=== PATIENT | female | born 1960 | race Caucasian/White ===

== ENCOUNTER 2017-08-05 06:07 | Day surgery (SDC) | payer MEDICAID ==
[2017-08-02 12:27] VITALS: BMI 23.1
[2017-08-05] MEDS ORDERED: Lidocaine 2% Inj (20ml) ONE (06:58)
[2017-08-05] MEDS ORDERED: Phenylephrine 10 mg/ml Inj ONE (06:58)
[2017-08-05 06:59] LABS: BASO # 0.02 K/mm3 (0.0-2.0); BASO % 0.3 % (0.0-3.0); EOS # 0.1 (0.0-0.7); EOS % 1.6 % (1.5-5.0); GRAN # 3.88 (1.4-6.5); GRAN % 51.2 % (50.0-68.0); HEMOGLOBIN 12.1 g/dL (12.0-16.0); MEAN CELL VOLUME 83.7 fl (80.0-105.0); MEAN CORPUSCULAR HEMOGLOBIN 27.3 pg (25.0-35.0); MEAN CORPUSCULAR HGB CONC 32.6 g/dl (31.0-37.0); MEAN PLATELET VOLUME 10.1 fl (7.0-11.0); MONO # 0.5 (0.1-0.6); MONO % 6.9 % (1.0-6.0); RBC 4.43 10^6/uL (3.5-6.1); RED CELL DISTRIBUTION WIDTH 13.4 % (11.5-14.5); WHITE BLOOD COUNT 7.6 10^3/ul (4.5-11.0)
[2017-08-05] MEDS ORDERED: Iodixanol 320 MG/ML 100 ML BOTTLE IV ONE (06:59)
[2017-08-05] MEDS ORDERED: Iodixanol 320 MG/ML 200 ML BOTTLE IV ONE (06:59)
[2017-08-05] MEDS ORDERED: HEPARIN SODIUM/NS 2,000 ML IV ONE (06:59)
[2017-08-05] MEDS ORDERED: Midazolam 2 MG/2 ML VIAL ONE ×4 (06:59→08:31)
[2017-08-05] MEDS ORDERED: Nitroglycerin 50mg in D5W 0 MG/0 ML BOTTLE IV ONE (06:59)
[2017-08-05] MEDS ORDERED: Iohexol 350mgl/ml 50 ML ONE (06:59)
[2017-08-05 07:07] LABS: BLOOD UREA NITROGEN 18 mg/dL (7-21); CALCIUM 9.5 mg/dL (8.4-10.5); GFR AFRICAN-AMERICAN > 60; GFR NON-AFRICAN AMERICAN > 60
[2017-08-05 07:16] LABS: INR 1.03 (0.93-1.08); PARTIAL THROMBOPLASTIN TIME 26.5 Seconds (25.1-36.5); PROTHROMBIN TIME 11.9 SECONDS (9.4-12.5)
[2017-08-05] MEDS ORDERED: Potassium Chloride 20 mEq ER Tab PO ONE ×2 (07:32→09:58)
[2017-08-05] MEDS ORDERED: Sodium Chloride 0.9% 1,000 ML IV SCH (09:30)
--- NOTE | 2017-08-05 09:59 | CARD ---
APPROVED REPORT EKG Measurement Heart [id number] [place] 190P12 [id number] <Conclusion> Sinus bradycardia Nonspecific ST and T wave abnormality
--- NOTE | 2017-08-05 12:36 | CARD ---
APPROVED REPORT EKG Measurement Heart [id number] [place] 192P7 [id number] <Conclusion> Sinus bradycardia Nonspecific ST- T wave abnormality Abnormal ECG
--- NOTE | 2017-08-05 13:13 | CARDCATH ---
PROCEDURE DATE: 08/05/2017 CARDIOLOGY CONSULTATION AND PTCA HISTORY: The patient is a 57-year-old woman who presents with angina and an abnormal stress test. She is status post coronary artery bypass surgery. She suffers from diabetes mellitus, hypertension and hypercholesterolemia. Because of this, cardiac catheterization was recommended. PROCEDURE: Left heart catheterization with coronary arteriography, left ventriculogram, GASTELUM angiogram, saphenous vein graft angiogram followed by PTCA and stent of the circumflex artery with a drug-eluting stent. The right femoral artery was cannulated with 6-Wolof sheath. There were no complications. I performed moderate sedation, which included the presence of an independent trained observer that assisted in monitoring the patient's level of consciousness and physiologic status. After administration of Versed and fentanyl, my intra service time was 30 minutes. The findings on catheterization revealed a left ventricle that contracted normally. Estimated ejection fraction is 55-60%. Her coronary anatomy revealed a right dominant circulation. The RCA revealed multiple long stents placed in the proximal portion into the border of the distal portion. In the proximal portion of the RCA, there was a 60-70% in-stent restenosis noted. The left main artery was unremarkable. The LAD is subtotally occluded in its proximal portion. The circumflex artery in the AV groove branch revealed a 99% stenoses. The first obtuse marginal branch was occluded. The GASTELUM to the LAD was found to be patent and provided good antegrade flow to the mid and distal LAD. The saphenous vein graft to the obtuse marginal branch was found to be patent and provided good antegrade flow to the obtuse marginal branch. The patient was started on intravenous Angiomax on the fluoroscopic guide, the guiding catheter was placed in the ostium of the left main artery. An 0.014 ATW wire was used to cross the critical lesion in the circumflex artery. This is followed by dilatation with a 2.0 balloon in the midcircumflex artery at 9 atmospheres of pressure. After balloon deflation and removal, a 2.25 x 12 mm drug-eluting stent was placed and deployed in the critical lesion at 11 atmospheres of pressure. After balloon deflation and removal, repeat coronary arteriography revealed an excellent result with no residual stenosis and JOSE L III flow. Angio-Seal was used to close the femoral artery site. The patient tolerated the procedure well. In summary, the procedure was successful for PTCA and stent of 99% stenoses of the midcircumflex artery. A drug-eluting stent was utilized. Cardiac catheterization reveals in-stent restenosis of 60-70% of the proximal RCA. The circumflex artery lesion as mentioned above. Triple-vessel CAD. Patent GASTELUM to the LAD. Patent saphenous vein graft to the obtuse marginal branch. Normal LV function. Given these findings, the patient will need to remain on aspirin indefinitely and Plavix for at least a year. We will bring her back in a couple weeks for PTCA and stent of the RCA. Cooper Chu MD
--- NOTE | 2017-08-05 21:50 | HP ---
HISTORY OF PRESENT ILLNESS: Dr. Chu asked me to put her on my service. He just did a cardiac cath with stent placement. She is lying comfortably in bed. No acute distress at this time. Family is present. This is a 57-year-old female who complains of mild chest pain, discomfort. She was set up for a cardiac cath with Dr. Chu today; stent was placed. She has chest tightness at times with shortness of breath when she walks up a flight of stairs. She has a history of hypothyroid, diabetes, hyperlipidemia, hypertension, triple-vessel disease, CAD. She had left foot spur surgery. Last menstrual period was 2 to 3 years ago. No alcohol. No smoking. No drugs. There is a CABG history, swelling of both feet. She wears glasses. She is alert and oriented x3. Not depressed. Not anxious. She is lying flat. She knows she has to lie flat at this time. ALLERGIES: SHE HAS NO KNOWN DRUG ALLERGIES. REVIEW OF SYSTEMS: She had shortness of breath. She walks too much and chest pain with walking a flight of stairs. No acute vision or hearing changes. No sore throat. No abdominal pain, nausea, vomiting, constipation, or diarrhea. No skin issues . Not anxious. Gets shortness of breath at times. PHYSICAL EXAMINATION: VITAL SIGNS: She had a 98.5 temp; 87 pulse; 163/100 blood pressure, I put her back on her Norvasc; 18 respiratory rate; and 99%O2 sat on room air. HEENT: Head is atraumatic, normocephalic. HEART: Regular rate. LUNGS: Decreased breath sounds, but clear. ABDOMEN: Soft. Nontender. EXTREMITIES: No edema. GCS is 15. Cranial nerves II through XII grossly intact. SKIN: Right intact. She has got a bandage over the right groin. LABORATORY DATA: She has a 142 sodium; potassium 3.5, I will get her some potassium; BUN 18, creatinine 0.6. GFR is greater than 60. Sugar is 116, calcium is 9.5. INR is 1.03. She has a 7.6 white count, 12.1 hemoglobin, 37.1 hematocrit with a 310 platelets. ASSESSMENT AND PLAN: Should be lying flat for the next 6 hours. She has IV fluids, Plavix. I added Norvasc, Lopressor, Lipitor if blood pressure is so high. She will be fed tonight, watched overnight. If she does well, she will be discharged tomorrow. We will check her labs tomorrow. I gave her one potassium now and she is here for coronary artery disease, stent placement. Armando Cramer DO MTDD
[2017-08-06 06:28] VITALS: TEMP 98.8
[2017-08-06 06:42] LABS: BASO # 0.03 K/mm3 (0.0-2.0); BASO % 0.4 % (0.0-3.0); EOS # 0.1 (0.0-0.7); EOS % 1.6 % (1.5-5.0); GRAN # 4.56 (1.4-6.5); GRAN % 57.5 % (50.0-68.0); HEMOGLOBIN 12.1 g/dL (12.0-16.0); LYMPH # 2.7 (1.2-3.4); LYMPH % 33.9 % (22.0-35.0); MEAN CELL VOLUME 84.1 fl (80.0-105.0); MEAN CORPUSCULAR HEMOGLOBIN 27.1 pg (25.0-35.0); MEAN CORPUSCULAR HGB CONC 32.3 g/dl (31.0-37.0); MONO # 0.5 (0.1-0.6); MONO % 6.6 % (1.0-6.0); RBC 4.46 10^6/uL (3.5-6.1); RED CELL DISTRIBUTION WIDTH 13.7 % (11.5-14.5); WHITE BLOOD COUNT 7.9 10^3/ul (4.5-11.0)
[2017-08-06 06:47] LABS: ALB/GLOB RATIO 1.3 (1.1-1.8); ALBUMIN 3.9 g/dL (3.0-4.8); ALT/SGPT 25 U/L (7-56); AST/SGOT 28 U/L (14-36); BLOOD UREA NITROGEN 16 mg/dL (7-21); CALCIUM 9.2 mg/dL (8.4-10.5); GFR AFRICAN-AMERICAN > 60; GFR NON-AFRICAN AMERICAN > 60
[2017-08-06 08:21] VITALS: O2SAT 99
--- NOTE | 2017-08-06 09:45 | CARD ---
APPROVED REPORT EKG Measurement Heart [id number] [place] 164P51 [id number] <Conclusion> Sinus bradycardia Nonspecific ST and T wave abnormality Abnormal ECG
[2017-08-06 09:56] VITALS: BP 141/74; PULSE 65
--- NOTE | 2017-08-06 10:24 | DS ---
HISTORY OF PRESENT ILLNESS: I saw her resting comfortably in bed. She has no chest pain. No shortness of breath. No abdominal pain. She is walking to the bathroom. The legs feel well. She is eating. Good spirits. She will be discharged today after Dr. Chu sees her. PHYSICAL EXAMINATION: VITAL SIGNS: She has a 98.8 temp, 69 pulse, 152/82 blood pressure, 20 respiratory rate, 98% O2 sat on room air. HEENT: Head is atraumatic, normocephalic. Throat is moist. NECK: Supple. HEART: Regular rate. LUNGS: Clear to auscultation. ABDOMEN: Soft. EXTREMITIES: No edema. MEDICATIONS: She is currently on Ecotrin, Lipitor, Lopressor, Norvasc, Plavix. She will also take her regular medication, metformin and Pepcid. LABORATORY DATA: She has a 140 sodium, potassium 3.7, BUN 16, creatinine 0.6, GFR is greater than 60, sugar is 126, calcium is 9.2, total bili is 0.4, AST is 28, ALT is 25, alk phos 66, total protein 6.9. She has a 7.9 white count, 12.1 hemoglobin, 37.5 hematocrit with a 306 platelets. ASSESSMENT AND PLAN: She was here for coronary artery disease, cardiac catheterization, stent placement. She will be followed up in the outpatient with the primary care and Dr. Chu. She will eat a very low-cholesterol, low-salt healthy diet. She will go for some walking and exercise. Armando Cramer DO
--- NOTE | 2017-08-06 11:05 | PN ---
DATE: 08/06/2017 CARDIOLOGY FOLLOWUP SUBJECTIVE: The patient is chest pain free. No shortness of breath. No chest pain. PHYSICAL EXAMINATION: VITAL SIGNS: Blood pressure is 141/74 with the heart rates in the 60s. NECK: Negative JVD. LUNGS: Without rales. HEART: With S1, S2. EXTREMITIES: Without edema. LABORATORY DATA: Hemoglobin is 12.1. Chemistries: BUN and creatinine are unremarkable. The glucose is 124. IMPRESSION: 1. Stable post Percutaneous transluminal coronary angioplasty and stent of the circumflex artery. 2. Status post coronary artery bypass surgery. 3. Triple-vessel coronary artery disease. 4. Diabetes mellitus. 5. Hypercholesterolemia. PLAN: Given these findings, the patient is stable for discharge. Instructions have been given to the patient in detail. She will follow up with me in the office in 3-4 weeks. We will bring her back after the visit for PTCA and stent of the RCA. Cooper Chu MD
[2017-08-06 11:31] VITALS: RESP 18
== END 2017-08-06 12:58 | disposition home or self-care (01) ==
LOC: CATH 06:07 → 2RNO 09:42 → CATH 08-06 12:58
PROVIDERS: ATTEND Family Medicine
DX: I25.119 Atherosclerotic heart disease of native coronary artery with unspecified angina pectoris (principal); T82.857A Stenosis of other cardiac prosthetic devices, implants and grafts, initial encounter; E03.9 Hypothyroidism, unspecified; E11.9 Type 2 diabetes mellitus without complications; E78.00 Pure hypercholesterolemia, unspecified; E78.5 Hyperlipidemia, unspecified; I10 Essential (primary) hypertension; Z79.02 Long term (current) use of antithrombotics/antiplatelets; Z79.82 Long term (current) use of aspirin; Z79.84 Long term (current) use of oral hypoglycemic drugs; Z95.1 Presence of aortocoronary bypass graft; Z95.5 Presence of coronary angioplasty implant and graft; R40.2413 Glasgow coma scale score 13-15, at hospital admission; R94.39 Abnormal result of other cardiovascular function study
CPT/HCPCS: 36415; 80048; 85025; 85610; 85730; 86850; 86900; 93005; 93459; 99152; 99153; C1725; C1760; C1769 ×2; C1874; C1887 ×2; C1894; C2629; J0583; J1644; J2250; J3010; J7030; J7040; Q9967

== ENCOUNTER 2017-08-26 06:33 | Day surgery (SDC) | payer MEDICAID ==
[2017-08-02 12:27] VITALS: BMI 23.1
[2017-08-26] MEDS ORDERED: Lidocaine 2% Inj (20ml) ONE (07:04)
[2017-08-26] MEDS ORDERED: Phenylephrine 10 mg/ml Inj ONE (07:04)
[2017-08-26] MEDS ORDERED: Iohexol 350mgl/ml 50 ML ONE (07:05)
[2017-08-26] MEDS ORDERED: Iodixanol 320 MG/ML 100 ML BOTTLE IV ONE (07:06)
[2017-08-26] MEDS ORDERED: HEPARIN SODIUM/NS 2,000 ML IV ONE (07:06)
[2017-08-26] MEDS ORDERED: Iodixanol 320 MG/ML 200 ML BOTTLE IV ONE (07:06)
[2017-08-26] MEDS ORDERED: Nitroglycerin 50mg in D5W 0 MG/0 ML BOTTLE IV ONE (07:07)
[2017-08-26 07:21] LABS: BASO # 0.04 K/mm3 (0.0-2.0); BASO % 0.6 % (0.0-3.0); EOS # 0.3 (0.0-0.7); EOS % 4.3 % (1.5-5.0); GRAN # 3.17 (1.4-6.5); GRAN % 45.1 % (50.0-68.0); HEMOGLOBIN 11.6 g/dL (12.0-16.0); LYMPH # 3.1 (1.2-3.4); LYMPH % 43.6 % (22.0-35.0); MEAN CELL VOLUME 82.8 fl (80.0-105.0); MEAN CORPUSCULAR HEMOGLOBIN 26.9 pg (25.0-35.0); MEAN CORPUSCULAR HGB CONC 32.5 g/dl (31.0-37.0); MEAN PLATELET VOLUME 9.5 fl (7.0-11.0); MONO # 0.5 (0.1-0.6); MONO % 6.4 % (1.0-6.0); RBC 4.31 10^6/uL (3.5-6.1); RED CELL DISTRIBUTION WIDTH 13.5 % (11.5-14.5)
[2017-08-26 07:33] LABS: BLOOD UREA NITROGEN 13 mg/dL (7-21); CALCIUM 9.4 mg/dL (8.4-10.5); GFR AFRICAN-AMERICAN > 60; GFR NON-AFRICAN AMERICAN > 60; HDL CHOLESTEROL 48 mg/dL (29-60)
[2017-08-26 07:35] LABS: INR 0.97 (0.93-1.08); PARTIAL THROMBOPLASTIN TIME 24.8 Seconds (25.1-36.5); PROTHROMBIN TIME 11.2 SECONDS (9.4-12.5)
[2017-08-26 07:45] LABS: LDL CHOLESTEROL 57 mg/dL (0-129)
[2017-08-26] MEDS ORDERED: Midazolam 2 MG/2 ML VIAL ONE ×2 (07:57→08:06)
--- NOTE | 2017-08-26 10:28 | CARD ---
APPROVED REPORT EKG Measurement Heart [id number] [place] 198P8 [id number] <Conclusion> Marked sinus bradycardia Nonspecific T wave abnormality Abnormal ECG
[2017-08-26] MEDS: Sodium Chloride 0.9% 1,000 ML IV SCH ×2 (11:46→21:25)
[2017-08-26] MEDS: Metoprolol Succinate 50 mg XL Tab PO SCH (11:46)
--- NOTE | 2017-08-26 12:52 | CARDCATH ---
PROCEDURE DATE: 08/26/2017 CARDIAC CATHETERIZATION AND PTCA HISTORY: The patient is a 57-year-old woman with a history of coronary artery bypass surgery, multiple stents in the past as well as diabetes mellitus and hypertension and hypercholesterolemia, who presents with exertional angina. The patient underwent PTCA and stent of a subtotally occluded circumflex artery 3-4 weeks ago. She presents for PTCA and stent of an RCA. PROCEDURE: The left femoral artery was cannulated with a 6-Kinyarwanda sheath. There were no complications. I performed moderate sedation which included the presence of an independent trained observer that assisted in monitoring the patient's level of consciousness and physiologic status. After administration of Versed and fentanyl, my intra-service time was 30 minutes. The findings on catheterization revealed a patent stent in the circumflex artery that was placed 3-4 weeks ago. There is critical disease in the diagonal vessel as well as at the first septal manager room which is protected by GASTELUM to the LAD. The RCA was a dominant vessel and revealed a 70%-80% stenosis in its proximal portion. The patient was started on intravenous Angiomax on the fluoroscopic guide, the guiding catheter was placed in the ostium of the RCA. A guide liner was used for better support. A 2.5 balloon was utilized to predilate the lesion. A 3.5 x 12 mm drug-eluting stent was deployed at 17 atmospheres of pressure. Postdilatation was performed with a 4.0 x 8 mm noncompliant balloon at 14 atmospheres of pressure. Repeat coronary arteriography revealed an excellent result with no residual stenosis and JOSE L III flow. Angio-Seal was used to close the left femoral artery site. The patient tolerated the procedure well. In summary, the procedure was successful of PTCA and stent of a critically stenosed proximal RCA stenoses. Drug-eluting stents were utilized. Cardiac catheterization reveals patent stents in the circumflex artery that was placed last month as well as her critical lesion in the diagonal and proximal LAD which is protected by GASTELUM. Given these findings, I have discussed with the patient and family about her need to continue Plavix for a year and undergo a strict cardiac risk reduction program. Cooper Chu MD [facility] # [id number]
--- NOTE | 2017-08-26 15:12 | HP ---
HISTORY OF PRESENT ILLNESS: I was called by Dr. Chu to take a look at her, put her on my service because she just had a cardiac cath and stent placement and she will be kept overnight. She is resting comfortably in bed right now. I saw her in the second floor. She was here a little while ago. Also had a cardiac cath and stent. This is a followup. PAST MEDICAL HISTORY: She has a past medical history of CAD, thyroid disease, diabetes, high cholesterol, hypertension, triple-vessel disease. She had left foot spur surgery; CABG x3 vessels 9 years ago; PTCAs and stents x4, last one was on 08/05/2017. She is alert and oriented x3. ALLERGIES: SHE HAS NO KNOWN DRUG ALLERGIES. MEDICATIONS: Ecotrin, Lipitor, Plavix, Toprol. REVIEW OF SYSTEMS: No acute vision or hearing changes. No sore throat. No neck pain. No chest pain. No shortness of breath. No abdominal pain. The extremities are okay at this time. Skin is okay. No anxiety. No depression. PHYSICAL EXAMINATION: VITAL SIGNS: 98.2 temp, 51 pulse, 148/71 blood pressure, 20 respiratory rate, 100% O2 sat on room air. HEENT: Head is atraumatic, normocephalic. Throat is moist. NECK: Supple. HEART: Regular rate. LUNGS: Decreased breath sounds, but clear. ABDOMEN: Soft, nontender. Positive bowel sounds. EXTREMITIES: Have no edema at this time. LABORATORY DATA: She has a 143 sodium, potassium 4.2, BUN 13, creatinine 0.5, GFR is greater than 60, sugar is 111, calcium is 9.4, triglycerides are 67, cholesterol is 125. INR is 0.97. She has a 7 white count, 11.6 hemoglobin, 35.7 hematocrit with 297 platelets. IMPRESSION AND PLAN: She will be watched overnight. She is going to lay flat for 6 hours. We are going to check her labs tomorrow. She will continue with the medications and she is here for coronary artery disease, catheterization and stent placement, also high cholesterol, hypertension, hypothyroidism and diabetes. Armando Cramer DO [facility] # [id number]
--- NOTE | 2017-08-26 15:54 | CARD ---
APPROVED REPORT EKG Measurement Heart [id number] [place] 200P14 [id number] <Conclusion> Marked sinus bradycardia Nonspecific ST and T wave abnormality Abnormal ECG
[2017-08-27 05:51] VITALS: O2SAT 100
[2017-08-27 06:24] LABS: BASO # 0.02 K/mm3 (0.0-2.0); BASO % 0.3 % (0.0-3.0); EOS # 0.2 (0.0-0.7); EOS % 3.2 % (1.5-5.0); GRAN # 4.15 (1.4-6.5); HEMOGLOBIN 11.8 g/dL (12.0-16.0); LYMPH # 2.6 (1.2-3.4); LYMPH % 35.2 % (22.0-35.0); MEAN CORPUSCULAR HEMOGLOBIN 27.1 pg (25.0-35.0); MEAN CORPUSCULAR HGB CONC 32.7 g/dl (31.0-37.0); MEAN PLATELET VOLUME 9.7 fl (7.0-11.0); MONO # 0.4 (0.1-0.6); MONO % 5.3 % (1.0-6.0); RBC 4.35 10^6/uL (3.5-6.1); RED CELL DISTRIBUTION WIDTH 13.4 % (11.5-14.5); WHITE BLOOD COUNT 7.4 10^3/ul (4.5-11.0)
[2017-08-27 07:25] LABS: ALB/GLOB RATIO 1.3 (1.1-1.8); ALBUMIN 3.9 g/dL (3.0-4.8); ALT/SGPT 24 U/L (7-56); AST/SGOT 31 U/L (14-36); BLOOD UREA NITROGEN 9 mg/dL (7-21); CALCIUM 9.3 mg/dL (8.4-10.5); GFR AFRICAN-AMERICAN > 60; GFR NON-AFRICAN AMERICAN > 60
[2017-08-27] MEDS: Metoprolol Succinate 50 mg XL Tab PO SCH (08:14)
--- NOTE | 2017-08-27 12:31 | PN ---
DATE: 08/27/2017 CARDIOLOGY FOLLOWUP SUBJECTIVE: The patient is ambulating without symptoms. PHYSICAL EXAMINATION: VITAL SIGNS: Blood pressure is 142/78 with the heart rates in the 60s. NECK: Negative JVD. LUNGS: Without rales. HEART: Reveals S1, S2. EXTREMITIES: Without edema. The left groin site is stable. LABORATORY DATA: Hemoglobin is 11.8. Chemistries: BUN and creatinine are unremarkable. IMPRESSION: 1. Stable post percutaneous transluminal coronary angioplasty and stent. 2. Multivessel coronary artery disease with multivessel percutaneous transluminal coronary angioplasty and stent. 3. Diabetes mellitus. 4. Hypercholesterolemia. PLAN: Given these findings, the patient is stable for discharge. Followup and instructions have been given to the patient. Medications were reviewed. Cooper Chu MD
[2017-08-27 13:31] VITALS: BP 121/67; PULSE 52; RESP 18; TEMP 99.3
--- NOTE | 2017-08-27 15:43 | CARD ---
APPROVED REPORT EKG Measurement Heart [id number] [place] 194P15 [id number] <Conclusion> Marked sinus bradycardia Nonspecific ST and T wave abnormality Q in 3, Small Q in AVF.
--- NOTE | 2017-08-28 00:53 | DS ---
HISTORY OF PRESENT ILLNESS: She is going home today. She had a cardiac cath and stent placement by Dr. Chu yesterday. She is comfortable this morning. She slept well. No chest pain, shortness of breath or abdominal pain. She is walking to the bathroom. She is eating. She is on Ecotrin, Lipitor, Plavix and Toprol. Those will be the same medications she will be on. PHYSICAL EXAMINATION: VITAL SIGNS: She has 97.8 temperature, 62 pulse, 142/70 blood pressure, 20 respiratory rate, 100% of O2 sat on room air. HEENT: Head is atraumatic, normocephalic. HEART: Regular rate. LUNGS: Clear to auscultation. ABDOMEN: Soft. EXTREMITIES: No edema. LABORATORY DATA: She has 7.4 white count, 11.8 hemoglobin, 36.1 hematocrit with 205 platelets. She has 142 sodium, potassium 3.7, BUN 9, creatinine 0.5, GFR is greater than 60, sugar is 112, calcium 9.3, total bilirubin is 0.4. AST is 31, ALT is 24, alk phos 50, total protein 6.9, cholesterol is 125. PLAN: She will be seen in the outpatient with Dr. Chu and follow up with her primary care physician. She will be discharged after Dr. Chu sees her this morning. She is here for CAD, status post cardiac cath and stent placement. Armando Cramer DO
== END 2017-08-27 13:53 | disposition home or self-care (01) ==
LOC: CATH 06:33 → 2RNO 09:21 → CATH 08-27 13:53
PROVIDERS: ATTEND Family Medicine
DX: I25.10 Atherosclerotic heart disease of native coronary artery without angina pectoris (principal); I10 Essential (primary) hypertension; E78.00 Pure hypercholesterolemia, unspecified; E11.9 Type 2 diabetes mellitus without complications; E03.9 Hypothyroidism, unspecified; Z79.82 Long term (current) use of aspirin; Z95.1 Presence of aortocoronary bypass graft; Z95.5 Presence of coronary angioplasty implant and graft
CPT/HCPCS: 36415; 80048; 80061; 85025; 85610; 85730; 86850; 86900; 93005; 93454; 99152; 99153; C1725 ×2; C1760; C1769 ×2; C1874; C1887 ×2; C2629; C9600; J0583; J1644; J2250; J3010; J7030; J7040; Q9966; Q9967

== ENCOUNTER 2018-10-06 06:15 | Outpatient (CLI) | payer MEDICAID | END 2018-10-06 06:16 | disposition home or self-care (01) | LOC: CARDIO 06:15 | DX: I25.10 Atherosclerotic heart disease of native coronary artery without angina pectoris (principal) ==

== ENCOUNTER 2018-10-13 07:27 | Day surgery (SDC) | payer MEDICAID ==
[2018-10-12 13:08] VITALS: BMI 22.4
[2018-10-13 08:43] LABS: BASO # 0.03 K/mm3 (0.0-2.0); BASO % 0.4 % (0.0-3.0); EOS # 0.2 (0.0-0.7); EOS % 2.1 % (1.5-5.0); HEMOGLOBIN 11.6 g/dL (12.0-16.0); LYMPH # 3.3 (1.2-3.4); LYMPH % 46.9 % (22.0-35.0); MEAN CELL VOLUME 82.4 fl (80.0-105.0); MEAN CORPUSCULAR HEMOGLOBIN 26.5 pg (25.0-35.0); MEAN CORPUSCULAR HGB CONC 32.2 g/dl (31.0-37.0); MONO # 0.5 (0.1-0.6); MONO % 6.4 % (1.0-6.0); RBC 4.37 10^6/uL (3.5-6.1); RED CELL DISTRIBUTION WIDTH 13.7 % (11.5-14.5)
[2018-10-13 08:44] LABS: BLOOD UREA NITROGEN 11 mg/dL (7-21); GFR NON-AFRICAN AMERICAN > 60; HDL CHOLESTEROL 56 mg/dL (29-60)
[2018-10-13 08:47] LABS: INR 1.04; PARTIAL THROMBOPLASTIN TIME 30.6 Seconds (26.9-38.3); PROTHROMBIN TIME 11.8 SECONDS (9.4-12.5)
[2018-10-13 08:55] LABS: LDL CHOLESTEROL 73 mg/dL (0-129)
[2018-10-13] MEDS ORDERED: Iodixanol 320 MG/ML 100 ML BOTTLE IV ONE (08:55)
[2018-10-13] MEDS ORDERED: Lidocaine PF 2% (5 ml) Inj (For Cardiac Arrhy) ONE (08:55)
[2018-10-13] MEDS ORDERED: Iohexol 350mgl/ml 50 ML ONE (08:55)
[2018-10-13] MEDS ORDERED: Nitroglycerin 50mg in D5W 0 MG/0 ML BOTTLE IV ONE (08:56)
[2018-10-13] MEDS ORDERED: Iodixanol 320 MG/ML 200 ML BOTTLE IV ONE (08:56)
[2018-10-13] MEDS ORDERED: Midazolam 2 MG/2 ML VIAL ONE ×2 (09:28→09:35)
[2018-10-13] MEDS ORDERED: Sodium Chloride 0.9% 1,000 ML IV SCH (10:15)
--- NOTE | 2018-10-13 10:49 | CARD ---
APPROVED REPORT Date of service: 10/13/2018 EKG Measurement Heart [id number] [place] 192P-16 [id number] <Conclusion> Sinus bradycardia Cannot rule out Anterior infarct, age undetermined. Possible lead misplacement V2, V3 Abnormal ECG
--- NOTE | 2018-10-13 12:21 | CARD ---
APPROVED REPORT Date of service: 10/13/2018 EKG Measurement Heart [id number] [place] 192P28 [id number] <Conclusion> Sinus bradycardia Nonspecific ST and T wave abnormality Abnormal ECG
--- NOTE | 2018-10-13 14:31 | CARDCATH ---
PROCEDURE DATE: 10/13/2018 HISTORY: The patient is a 58-year-old woman who is status post coronary artery bypass surgeries, status post multivessel PTCA and stent with a history of diabetes mellitus, hypertension and hypercholesterolemia with aggressive atherosclerosis, who presents with atypical chest pain with a positive stress test. Because of her aggressive nature of her atherosclerosis, a repeat catheterization was recommended. PROCEDURE: Left heart catheterization with coronary arteriography, left ventriculogram, supra-aortic valvular injection, left internal mammary artery angiogram as well as saphenous vein graft angiogram followed by percutaneous transluminal coronary angioplasty and stent of the circumflex artery. DESCRIPTION OF PROCEDURE: The right femoral artery was cannulated with a 6-Zambian sheath. There were no complications. I performed moderate sedation, which included the presence of an independent trained observer that assisted in monitoring the patient's level of consciousness and physiologic status. After administration of Versed and fentanyl, my intra service time was 45 minutes. The findings on catheterization revealed a left ventricle that contracted normally. Supra-aortic valvular injection revealed no aortic insufficiency. The ejection fraction was 60%. Her coronary anatomy revealed a left main artery that was unremarkable. The LAD was subtotally occluded in its proximal portion. The circumflex artery revealed a patent stent, was subtotally occluded in its proximal portion of the obtuse marginal branch. There is eccentric 80% stenoses in the mid circumflex artery in the AV groove branch after the takeoff of the obtuse marginal branch. The RCA revealed multiple patent stents that were placed approximately a year ago. The GASTELUM to the LAD was found to be patent and provided good antegrade flow to the mid and distal LAD. The saphenous vein graft to the obtuse marginal branch was found to be patent and provided good antegrade flow. The patient was started on intravenous Angiomax on the fluoroscopic guide, the guiding catheter was placed in the ostium of the left main artery and 0.014 ATW wire was used to cross the markedly tortuous mid circumflex artery past critical lesion. A 2.5 balloon was utilized to dilate the lesion. After balloon deflation removal, the results were excellent with no residual stenoses and JOSE L-III flow. No stents were attempted given the marked angulation of the circumflex artery lesion. The results of balloon angioplasty were excellent. AngioSeal was used to close the femoral artery site. The patient tolerated the procedure well. In summary, the procedure was successful PTCA of the of the mid circumflex artery with an acute angle after the obtuse marginal branch with excellent results. Cardiac catheterization reveals triple-vessel CAD. Patent GASTELUM to the LAD. Patent SVG to the obtuse marginal branch. Patent stents in the RCA that were placed a year ago. Normal LV function with EF 60%. Given these findings, the patient will need to continue her cardiac risk reduction program and remain on aspirin indefinitely. Cooper Chu MD
[2018-10-13 17:01] VITALS: RESP 20
--- NOTE | 2018-10-14 01:22 | HP ---
DATE OF EXAM: 10/13/2018 HISTORY OF PRESENT ILLNESS: I was called by Dr. Cooper Chu to do a history and physical on her. He had seen her in the past and set her up for cardiac cath. She had chest pain at three different times over the past month with shortness of breath with activity and she came in for a cardiac catheterization, I believe she had a stent placed. PAST MEDICAL HISTORY: She has a past medical history of diabetes, thyroid, coronary artery disease, hyperlipidemia, hypertension, triple-vessel cardiac disease in the past, left foot spur surgery, CABG x3 vessels 13 years ago, PTCA's and stents in the past x5 ever since 08/26/2017. Last menstrual period was 3 to 4 years ago. She is menopausal. SOCIAL HISTORY: A no smoker. No drinking. No drugs. REVIEW OF SYSTEMS: History of coronary artery disease with open heart surgery three vessels. She wears glasses. No anxiety and depression. No changes in vision. No changes in hearing. No sore throat. She did have chest pain and also shortness of breath with activity. No nausea, vomiting, constipation, or diarrhea. No extremity issues. PHYSICAL EXAMINATION VITAL SIGNS: She had a temperature of 97.5, 52 pulse, 18 respiratory rate, a 100% O2 sat, and 131/74 blood pressure. HEENT: Her head is atraumatic, normocephalic. Her extraocular muscles are intact. Pupils are equally reactive to light and accommodation. Throat is moist. NECK: Supple. HEART: Regular rate. LUNGS: Decreased breath sounds but clear. Poor inspiration at this time. ABDOMEN: Soft, nontender. Positive bowel sounds. No guarding, no rebound nor CVA tenderness. EXTREMITIES: No edema. SKIN: As far as I could tell is no rashes or ulcers. NEUROLOGIC: Alert and oriented x3. Cranial nerves II through XII grossly intact. GCS is 15. LABORATORY DATA: She had tests done. She has a 7 white count, 11.6 hemoglobin, 36 hematocrit with 310 platelets. She has a 1.04 INR. She has a 141 sodium, potassium 4.2, BUN 11, creatinine 0.5, GFR is greater than 60, sugar is 109, calcium is 9. Triglycerides 85, cholesterol is 146, LDL 73, HDL 66. Last blood sugar was 109. MEDICATIONS: She is currently taking aspirin, metformin, levothyroxine, atorvastatin, metoprolol, amlodipine, Pepcid and Plavix. ASSESSMENT AND PLAN: We are going to hold off on her regular medications till tomorrow. She will drink fluids tonight. She is to lay flat for 6 hours. She is comfortable at this time and hopefully tomorrow morning she will be doing well and we could discharge her tomorrow. She is here for chest pain, shortness of breath with exertion, coronary artery disease. She is a bit diabetic. This is a history and physical for Dr. Cooper Chu on Lucas Delgado who has coronary artery disease, chest pain, shortness of breath and is status post cardiac catheterization with stents placed. Armando Cramer DO
[2018-10-14 06:16] VITALS: BP 123/76; TEMP 98.2; O2SAT 99
[2018-10-14 07:46] LABS: BLOOD UREA NITROGEN 10 mg/dL (7-21); CALCIUM 8.8 mg/dL (8.4-10.5); GFR NON-AFRICAN AMERICAN > 60
[2018-10-14 08:33] LABS: BASO # 0.02 K/mm3 (0.0-2.0); BASO % 0.3 % (0.0-3.0); EOS # 0.1 (0.0-0.7); EOS % 1.5 % (1.5-5.0); HEMOGLOBIN 12.4 g/dL (12.0-16.0); LYMPH % 42.1 % (22.0-35.0); MEAN CELL VOLUME 82.2 fl (80.0-105.0); MEAN CORPUSCULAR HEMOGLOBIN 26.6 pg (25.0-35.0); MEAN CORPUSCULAR HGB CONC 32.4 g/dl (31.0-37.0); MEAN PLATELET VOLUME 9.5 fl (7.0-11.0); MONO # 0.4 (0.1-0.6); MONO % 5.3 % (1.0-6.0); RBC 4.66 10^6/uL (3.5-6.1); RED CELL DISTRIBUTION WIDTH 13.7 % (11.5-14.5); WHITE BLOOD COUNT 7.2 10^3/uL (4.5-11.0)
--- NOTE | 2018-10-14 09:56 | PN ---
DATE: 10/14/2018 CARDIOLOGY FOLLOWUP SUBJECTIVE: The patient is chest pain free. PHYSICAL EXAMINATION: VITAL SIGNS: Blood pressure is 123/76, heart rate in the 70s, normal sinus rhythm. NECK: Negative JVD. LUNGS: Without rales. HEART: S1 and S2. EXTREMITIES: Without edema. The right groin site is stable. LABORATORY DATA: Hemoglobin is 12.4, BUN and creatinine are unremarkable. The glucose is 113. IMPRESSION: 1. Status post percutaneous transluminal coronary angioplasty of the circumflex artery. 2. History of multivessel coronary artery disease. 3. Status post coronary artery bypass surgery. 4. History of multivessel percutaneous transluminal coronary angioplasty in the past. 5. Diabetes mellitus. 6. Hypercholesterolemia. Given these findings, the patient's cardiac status is stable post procedure. From a cardiac perspective, the patient can be discharged. Followup and instructions have been given to the patient in detail. Cooper Chu MD
--- NOTE | 2018-10-14 11:47 | CARD ---
APPROVED REPORT Date of service: 10/14/2018 EKG Measurement Heart [id number] [place] 170P-3 [id number] <Conclusion> Sinus bradycardia with sinus arrhythmia Nonspecific ST and T wave abnormality Prolonged QT Abnormal ECG
[2018-10-14 14:02] VITALS: PULSE 65
--- NOTE | 2018-10-15 00:10 | DS ---
HISTORY OF PRESENT ILLNESS: She is status post percutaneous transluminal coronary angioplasty of the circumflex artery. 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 After reviewing her tests and discussing with Cardiology, she is able to be discharged today. PHYSICAL EXAMINATION VITAL SIGNS: She has a 98.2 temperature, 57 pulse, 123/76 blood pressure, 20 respiratory rate, and 99% O2 sat on room air. HEENT: Head is atraumatic, normocephalic. HEART: Regular rate. LUNGS: Clear to auscultation. ABDOMEN: Soft. EXTREMITIES: With no edema. NEUROLOGIC: She is eating well. She is going to the bathroom well. She is walking well. No complaints. LABORATORY DATA: She has a 7.2 white count, 12.4 hemoglobin, 303 platelets. A 139 sodium, potassium 3.9, BUN is 10, creatinine 0.5, GFR is greater than 60, sugar is 124, calcium is 8.8. ASSESSMENT AND PLAN: She will be discharged to follow up on an outpatient with a primary care physician and Cardiology. Lucas Delgado is here for coronary artery disease and stent placement. Armando Cramer DO
== END 2018-10-14 13:48 | disposition home or self-care (01) ==
LOC: CATH 07:27 → 2RSO 10:28 → CATH 10-14 13:48
PROVIDERS: ATTEND Internal Medicine Cardiovascular Disease
DX: I25.10 Atherosclerotic heart disease of native coronary artery without angina pectoris (principal); E11.9 Type 2 diabetes mellitus without complications; E78.00 Pure hypercholesterolemia, unspecified; E78.5 Hyperlipidemia, unspecified; I10 Essential (primary) hypertension; R07.89 Other chest pain; Z79.84 Long term (current) use of oral hypoglycemic drugs; Z79.899 Other long term (current) drug therapy; Z95.1 Presence of aortocoronary bypass graft; Z95.5 Presence of coronary angioplasty implant and graft
CPT/HCPCS: 36415; 80048; 80061; 85025; 85610; 85730; 86850; 86900; 92920; 93005; 93459; 99152; C1725; C1760; C1769 ×2; C1887; C2629; J0583; J1644; J2250; J3010; J7030; Q9966; Q9967